=== PATIENT | male | born 1940 | race Caucasian/White ===

== ENCOUNTER 2024-03-11 06:58 | Day surgery (SDC) | payer MEDICARE, OTHER ==
[~2024-03-11] VITALS: Ht 182.9 cm; Wt 77.5 kg
[2024-03-11] MEDS ORDERED: JARDIANCE25 MG (07:21)
[2024-03-11] MEDS ORDERED: DORZOLAMIDE-TIM10 ML (07:21)
[2024-03-11] MEDS ORDERED: INSULANI (07:21)
[2024-03-11] MEDS ORDERED: PARO20 (07:22)
[2024-03-11] MEDS ORDERED: BUPR150ER (07:22)
[2024-03-11] MEDS ORDERED: INSULIN AS100 UNIT/6 (07:22)
[2024-03-11] MEDS ORDERED: METF500 (07:23)
[2024-03-11] MEDS ORDERED: EZET10 (07:23)
[2024-03-11] MEDS ORDERED: LATA.005SO (07:23)
[2024-03-11] MEDS ORDERED: Alphagan P5 ML (07:23)
[2024-03-11] MEDS ORDERED: CLOP75 (07:23)
[2024-03-11] MEDS ORDERED: Lactated Ringer's 1,000 ML IV ONE ×2 (07:37→07:57)
[2024-03-11] MEDS ORDERED: propofoL 50 ML IV ONE (07:37)
[2024-03-11] MEDS ORDERED: ASPIR 8181 MG (07:38)
[2024-03-11] MEDS ORDERED: ePHEDrine Sulfate 50 MG/ML 1ML Injection ONE (08:55)
[2024-03-11 09:25] VITALS: BP 127/66
== END 2024-03-11 09:30 | disposition home or self-care (01) ==
LOC: ORSCSDS 06:58
PROVIDERS: Internal Medicine Gastroenterology
PROC: 0DBM8ZX Excision of Descending Colon, Via Natural or Artificial Opening Endoscopic, Diagnostic (ICD-10-PCS; principal; 2024-03-11 08:00)
PROC: 0DBK8ZX Excision of Ascending Colon, Via Natural or Artificial Opening Endoscopic, Diagnostic (ICD-10-PCS; principal; 2024-03-11 08:00)
PROC: 0DBH8ZX Excision of Cecum, Via Natural or Artificial Opening Endoscopic, Diagnostic (ICD-10-PCS; principal; 2024-03-11 08:00)
DX: Z12.11 Encounter for screening for malignant neoplasm of colon (principal); Z86.010 Personal history of colon polyps; D12.4 Benign neoplasm of descending colon; Z87.891 Personal history of nicotine dependence; E11.9 Type 2 diabetes mellitus without complications; I65.29 Occlusion and stenosis of unspecified carotid artery; Z79.02 Long term (current) use of antithrombotics/antiplatelets; Z79.82 Long term (current) use of aspirin
CPT/HCPCS: 82947; 88305; J2704; J7120

== ENCOUNTER → 2024-06-09 | Outpatient (CLI) | payer MEDICARE, OTHER ==
[~2024-06-09] MED LIST: ASPIR 8181 MG; Alphagan P5 ML; BUPR150ER; CLOP75; DORZOLAMIDE-TIM10 ML; EZET10; INSULANI; INSULIN AS100 UNIT/6; JARDIANCE25 MG; LATA.005SO; METF500; PARO20
[2024-06-09 12:26] LABS: BASOPHILS ABSOLUTE AUTO 0.06 K/mm3 (0.00-0.23); BASOPHILS PERCENT AUTO 0 % (0-2); EOSINOPHILS ABSOLUTE AUTO 0.01 K/mm3 (0.00-0.68); EOSINOPHILS PERCENT AUTO 0 % (0-6); Hematocrit 47.1 % (37.0-53.0); Hemoglobin 14.8 g/dL (13.5-17.5); IMMATURE GRAN ABSOLUTE AUTO 0.07 K/mm3 (0.00-0.10); IMMATURE GRAN PERCENT AUTO 1 % (0-1); LYMPHOCYTES ABSOLUTE AUTO 1.47 K/mm3 (0.84-5.20); LYMPHOCYTES PERCENT AUTO 10 % (21-46); MONOCYTES ABSOLUTE AUTO 0.68 K/mm3 (0.16-1.47); MONOCYTES PERCENT AUTO 5 % (4-13); Mean Corpuscular HGB 29.3 pg (26.0-34.0); Mean Corpuscular HGB Conc 31.4 g/dL (31.5-36.5); Mean Corpuscular Volume 93 fL (80-100); NEUTROPHILS ABSOLUTE AUTO 11.84 K/mm3 (1.96-9.15); NEUTROPHILS PERCENT AUTO 84 % (41-73); Platelet Count 440 K/mm3 (150-400); RDW Coefficient Variation 13.1 % (11.7-14.2); RDW Standard Deviation 44.7 fL (35.1-46.3); Red Blood Cell Count 5.05 M/mm3 (4.30-5.90); White Blood Cell Count 14.13 K/mm3 (4.00-11.30)
[2024-06-09 12:41] LABS: Albumin, Blood 4.1 g/dL (3.4-5.0); Albumin/Globulin Ratio 0.9 (0.8-1.8); Bilirubin, Total 0.6 mg/dL (0.1-1.0); Bun/Creatinine Ratio 18.1 (12.0-20.0); Calcium, Blood 9.7 mg/dL (8.5-10.1); Creatinine, Blood 1.27 mg/dL (0.60-1.20); Globulin, Blood 4.6 g/dL (2.2-4.0); Potassium, Blood 4.6 mmol/L (3.5-5.5); Total Protein, Blood 8.7 g/dL (6.4-8.2)
== END ==
LOC: LAB 12:20 → LAB SHORT 12:20
PROVIDERS: Physician Assistant Medical
DX: R11.2 Nausea with vomiting, unspecified (principal)
CPT/HCPCS: 80053; 83690; 85025

== ENCOUNTER → 2024-06-09 | Outpatient (CLI) | payer MEDICARE, OTHER ==
[2024-06-09 15:24] LABS: Albumin, Blood 3.4 g/dL (3.4-5.0); Albumin/Globulin Ratio 0.9 (0.8-1.8); Bilirubin, Total 0.5 mg/dL (0.1-1.0); Bun/Creatinine Ratio 20.6 (12.0-20.0); Calcium, Blood 8.6 mg/dL (8.5-10.1); Creatinine, Blood 0.97 mg/dL (0.60-1.20); Globulin, Blood 3.9 g/dL (2.2-4.0); Potassium, Blood 4.1 mmol/L (3.5-5.5); Total Protein, Blood 7.3 g/dL (6.4-8.2)
== END ==
LOC: LAB 15:03 → LAB SHORT 15:03
PROVIDERS: Physician Assistant Medical
DX: R11.2 Nausea with vomiting, unspecified (principal)
CPT/HCPCS: 80053

== ENCOUNTER → 2024-06-30 | Outpatient (CLI) | payer MEDICARE, OTHER | LOC: LAB 15:58 → LAB SHORT 15:58 | DX: L97.512 Non-pressure chronic ulcer of other part of right foot with fat layer exposed (principal) | CPT/HCPCS: 87070; 87205 ==

== ENCOUNTER 2024-07-02 08:35 | Day surgery (SDC) | payer MEDICARE, OTHER ==
[2024-07-02] MEDS ORDERED: Lidocaine HCl 4% Cream 5 GM ONE (14:58)
== END 2024-07-02 23:00 | disposition home or self-care (01) ==
LOC: WOUND 08:35
DX: E11.621 Type 2 diabetes mellitus with foot ulcer (principal); L97.516 Non-pressure chronic ulcer of other part of right foot with bone involvement without evidence of necrosis; L97.512 Non-pressure chronic ulcer of other part of right foot with fat layer exposed; L97.511 Non-pressure chronic ulcer of other part of right foot limited to breakdown of skin; E11.40 Type 2 diabetes mellitus with diabetic neuropathy, unspecified; E11.51 Type 2 diabetes mellitus with diabetic peripheral angiopathy without gangrene; I87.2 Venous insufficiency (chronic) (peripheral); I73.9 Peripheral vascular disease, unspecified; Z79.4 Long term (current) use of insulin; Z79.84 Long term (current) use of oral hypoglycemic drugs
CPT/HCPCS: 73630; A6213; A9270; G0463

== ENCOUNTER 2024-07-09 01:30 | Day surgery (SDC) | payer MEDICARE, OTHER ==
[2024-07-09] MEDS ORDERED: Lidocaine HCl 4% Cream 5 GM ONE (08:44)
== END 2024-07-09 23:05 | disposition home or self-care (01) ==
LOC: WOUND 01:30
DX: E11.621 Type 2 diabetes mellitus with foot ulcer (principal); L97.512 Non-pressure chronic ulcer of other part of right foot with fat layer exposed; L97.515 Non-pressure chronic ulcer of other part of right foot with muscle involvement without evidence of necrosis; E11.40 Type 2 diabetes mellitus with diabetic neuropathy, unspecified; E11.51 Type 2 diabetes mellitus with diabetic peripheral angiopathy without gangrene
CPT/HCPCS: A9270; G0463

== ENCOUNTER 2024-07-16 05:11 | Day surgery (SDC) | payer MEDICARE, OTHER | END 2024-07-20 23:00 | disposition home or self-care (01) | LOC: WOUND 05:11 | DX: E11.621 Type 2 diabetes mellitus with foot ulcer (principal); L97.515 Non-pressure chronic ulcer of other part of right foot with muscle involvement without evidence of necrosis; L97.512 Non-pressure chronic ulcer of other part of right foot with fat layer exposed; E11.51 Type 2 diabetes mellitus with diabetic peripheral angiopathy without gangrene | CPT/HCPCS: A6213; G0463 ==

== ENCOUNTER 2024-07-23 03:06 | Day surgery (SDC) | payer MEDICARE, OTHER ==
[2024-07-23] MEDS ORDERED: Lidocaine HCl 4% Cream 5 GM ONE (09:35)
== END 2024-07-23 23:00 | disposition home or self-care (01) ==
LOC: WOUND 03:06
DX: E11.621 Type 2 diabetes mellitus with foot ulcer (principal); L97.512 Non-pressure chronic ulcer of other part of right foot with fat layer exposed; L97.413 Non-pressure chronic ulcer of right heel and midfoot with necrosis of muscle; E11.51 Type 2 diabetes mellitus with diabetic peripheral angiopathy without gangrene
CPT/HCPCS: A6213; A9270; G0463

== ENCOUNTER 2024-07-30 06:05 | Day surgery (SDC) | payer MEDICARE, OTHER ==
[2024-07-30] MEDS ORDERED: Lidocaine HCl 4% Cream 5 GM ONE (10:44)
== END 2024-07-30 23:00 | disposition home or self-care (01) ==
LOC: WOUND 06:05
DX: E11.621 Type 2 diabetes mellitus with foot ulcer (principal); L97.515 Non-pressure chronic ulcer of other part of right foot with muscle involvement without evidence of necrosis; L97.512 Non-pressure chronic ulcer of other part of right foot with fat layer exposed; L97.511 Non-pressure chronic ulcer of other part of right foot limited to breakdown of skin; E11.51 Type 2 diabetes mellitus with diabetic peripheral angiopathy without gangrene
CPT/HCPCS: A6213; A9270; G0463

== ENCOUNTER 2024-08-20 01:43 | Day surgery (SDC) | payer MEDICARE, OTHER ==
[2024-08-20] MEDS ORDERED: Lidocaine HCl 4% Cream 5 GM ONE (11:09)
== END 2024-08-22 23:00 | disposition home or self-care (01) ==
LOC: WOUND 01:43
DX: E11.621 Type 2 diabetes mellitus with foot ulcer (principal); L97.515 Non-pressure chronic ulcer of other part of right foot with muscle involvement without evidence of necrosis; L97.512 Non-pressure chronic ulcer of other part of right foot with fat layer exposed; E11.51 Type 2 diabetes mellitus with diabetic peripheral angiopathy without gangrene; E11.40 Type 2 diabetes mellitus with diabetic neuropathy, unspecified
CPT/HCPCS: A6213; A9270; G0463

== ENCOUNTER 2024-08-27 00:51 | Day surgery (SDC) | payer MEDICARE, OTHER ==
[~2024-08-27 00:51] MED LIST changes: -ASPIR 8181 MG; +ASPIR 8181 MG PO; -Alphagan P5 ML; +Alphagan P5 ML RIGHTEYE; -BUPR150ER; +BUPR150ER PO; -CLOP75; +CLOP75 PO; -EZET10; +EZET10 PO; -INSULANI; +INSULANI SC; -JARDIANCE25 MG; +JARDIANCE25 MG PO; -LATA.005SO; +LATA.005SO BOTHEYES; -METF500; +METF500 PO; -PARO20; +PARO20 PO
[2024-08-27] MEDS ORDERED: Lidocaine HCl 4% Cream 5 GM ONE (10:09)
[2024-08-28] MEDS ORDERED: Vitamin D1000 UNI1 PO (09:17)
[2024-08-28] MEDS ORDERED: GLIM4 PO (09:17)
[2024-08-28] MEDS ORDERED: DORZOPSO RIGHTEYE (09:17)
[2024-08-28] MEDS ORDERED: TOCO1000 PO (09:18)
== END 2024-08-27 23:00 | disposition home or self-care (01) ==
LOC: WOUND 00:51
DX: E11.621 Type 2 diabetes mellitus with foot ulcer (principal); L97.515 Non-pressure chronic ulcer of other part of right foot with muscle involvement without evidence of necrosis; L97.512 Non-pressure chronic ulcer of other part of right foot with fat layer exposed; E11.51 Type 2 diabetes mellitus with diabetic peripheral angiopathy without gangrene; E11.40 Type 2 diabetes mellitus with diabetic neuropathy, unspecified; I73.9 Peripheral vascular disease, unspecified; L97.519 Non-pressure chronic ulcer of other part of right foot with unspecified severity
CPT/HCPCS: A6213; A9270; G0463

== ENCOUNTER 2024-08-28 08:49 | Day surgery (SDC) | payer MEDICARE, OTHER ==
[~2024-08-28] VITALS: Ht 182.9 cm; Wt 75.3 kg
[2024-08-28] VITALS (10 sets, daily range): BP systolic 113–158; BP diastolic 55–109
[2024-08-28] MEDS ORDERED: DORZOPSO RIGHTEYE (09:17)
[2024-08-28] MEDS ORDERED: GLIM4 PO (09:17)
[2024-08-28] MEDS ORDERED: Vitamin D1000 UNI1 PO (09:17)
[2024-08-28] MEDS ORDERED: TOCO1000 PO (09:18)
[2024-08-28] MEDS ORDERED: Midazolam HCl 1MG / ML 2ML Vial ONE (11:29)
[2024-08-28] MEDS ORDERED: Heparin Sodium 1000 Units/ML 10ML MDV ONE (11:30)
[2024-08-28] MEDS ORDERED: FentaNYL Citrate 50 MCG/ML 2 ML Injection ONE (11:30)
[2024-08-28] MEDS ORDERED: NS 250 ML IV ONE (11:30)
[2024-08-28] MEDS ORDERED: NS 2,000 ML IV ONE (11:30)
[2024-08-28] MEDS ORDERED: Phenylephrine HCl 100 MCG/ML-NS 10MLSYR (1MG/10ML) ONE (12:03)
[2024-08-28] MEDS ORDERED: NS 100 ML IV ONE (12:27)
[2024-08-28] MEDS ORDERED: Nitroglycerin 2 MG/20 ML BTL ONE (12:52)
[2024-08-28] MEDS ORDERED: Verapamil HCL 2.5 MG/ML 2ML Injection ONE (12:52)
--- NOTE | 2024-08-28 14:00 | NUR ---
SITE INTACT TO GROIN, NOTED GOOD PULSES DISTAL/PROXIMAL, NO HEMATOMA, VSS, BROUGHT WATER, DISCUSS LAYING FLAT, PENDING D/C, PATIENT DENIES NEEDS.
--- NOTE | 2024-08-28 14:05 | NUR ---
ASSUMED CARE OF PT POST PROCEDURE. PT AWAKE AND CONVERSING APPROPRIATELY; DENIES PAIN POST PROCEDURE. MONITOR SR 60'S, B/P 158/91, SPO2 96% RA. L GROIN NO SWELLING/HEMATOMA, TEGADERM DRSG INTACT; ANGIO SEAL DEPLOYED, LLE DP 2+, PT 1+. R DP ATTEMPT- NO SWELLING/HEMATOMA, CLOTH DOT DRSG INTACT.
--- NOTE | 2024-08-28 15:05 | NUR ---
PT'S HOB ELEVATED, SITE UNCHANGED.
--- NOTE | 2024-08-28 16:05 | NUR ---
PT AMB TO BATHROOM, GAIT STEADY; SITE UNCHANGED WITH ACTIVIY.
--- NOTE | 2024-08-28 16:20 | NUR ---
PT DRESSED SELF WITHOUT PROBLEM, SITES UNCHANGED; IV REMOVED-CANNULA INTACT.
--- NOTE | 2024-08-28 16:29 | NUR ---
PT AND RECEIVED DISCHARGE INSTRUCTIONS, MED LIST AND AFTER CARE INSTRUCTIONS; VERBALIZED GOOD UNDERSTANDING. PT LEFT FACILITY VIA W/C, CONDITION STABLE.
== END 2024-08-28 16:29 | disposition home or self-care (01) ==
LOC: MHTC 08:49
DX: I70.235 Atherosclerosis of native arteries of right leg with ulceration of other part of foot (principal); L97.519 Non-pressure chronic ulcer of other part of right foot with unspecified severity
CPT/HCPCS: 37224; 37228; 75625; 75716; 75774; 76937; 82947; 93005; 93010; 99152; 99153; C1725; C1769; C1887; C1894; C2623; J1644; J2250; J2371; J3010; J7030; J7050; Q9967

== ENCOUNTER 2024-09-02 03:45 | Day surgery (SDC) | payer MEDICARE, OTHER ==
[~2024-09-02 03:45] MED LIST changes: +DORZOPSO RIGHTEYE; +GLIM4 PO; +TOCO1000 PO; +Vitamin D1000 UNI1 PO
[2024-09-02] MEDS ORDERED: Lidocaine HCl 4% Cream 5 GM ONE (10:06)
== END 2024-09-02 23:16 | disposition home or self-care (01) ==
LOC: WOUND 03:45
DX: E11.621 Type 2 diabetes mellitus with foot ulcer (principal); L97.513 Non-pressure chronic ulcer of other part of right foot with necrosis of muscle; L97.512 Non-pressure chronic ulcer of other part of right foot with fat layer exposed; E11.51 Type 2 diabetes mellitus with diabetic peripheral angiopathy without gangrene
CPT/HCPCS: A6213; A9270; G0463

== ENCOUNTER 2024-09-10 01:26 | Day surgery (SDC) | payer MEDICARE, OTHER ==
[2024-09-10] MEDS ORDERED: ATOR80 PO (12:57)
== END 2024-09-10 23:00 | disposition home or self-care (01) ==
LOC: WOUND 01:26
DX: E11.621 Type 2 diabetes mellitus with foot ulcer (principal); L97.512 Non-pressure chronic ulcer of other part of right foot with fat layer exposed; E11.51 Type 2 diabetes mellitus with diabetic peripheral angiopathy without gangrene; E11.40 Type 2 diabetes mellitus with diabetic neuropathy, unspecified; I70.221 Atherosclerosis of native arteries of extremities with rest pain, right leg; L97.519 Non-pressure chronic ulcer of other part of right foot with unspecified severity
CPT/HCPCS: 36415; 80048; 85007; 85027; 85610; A6213; G0463

== ENCOUNTER 2024-09-11 07:29 | Day surgery (SDC) | payer MEDICARE, OTHER ==
[2024-09-11] VITALS (9 sets, daily range): BP systolic 95–152; BP diastolic 62–95
[~2024-09-11] VITALS: Ht 182.9 cm; Wt 75.0 kg
[~2024-09-11 07:29] MED LIST changes: +ATOR80 PO
[2024-09-11] MEDS ORDERED: Midazolam HCl 1MG / ML 2ML Vial ONE (08:20)
[2024-09-11] MEDS ORDERED: FentaNYL Citrate 50 MCG/ML 2 ML Injection ONE (08:20)
--- NOTE | 2024-09-11 09:25 | NUR ---
PATIENT ARRIVED TO RECOVERY ROOM WITH HOB FLAT. RIGHT GROIN SITE C/D/I SOFT/NONTENDER, NO EVIDENCE OF BLEEDING. VSS ON RA. PULSES PRESENT IN DP AND PT EXCEPT R DP. PHYSICAN AWARE. PATIENT CONVERSING APPROPRIATELY.
--- NOTE | 2024-09-11 10:00 | NUR ---
PATIENT RESTING COMFORTABLY IN BED. RIGHT GROIN SITE C/D/I SOFT/NONTENDER, NO EVIDENCE OF BLEEDING. VSS ON RA. PATIENT DENYING ANY PAIN. NO CHANGES IN PULSES
--- NOTE | 2024-09-11 10:30 | NUR ---
HOB ELEVATED 30 DEGREES. RIGHT GROIN SITE C/D/I SOFT/NONTENDER, NO EVIDENCE OF BLEEDING. VSS ON RA. PATIENT TOLERATING PO INTAKE WELL. NO CHANGES TO PULSES
--- NOTE | 2024-09-11 10:45 | NUR ---
HOB ELEVATED 45 DEGREES. RIGHT GROIN SITE C/D/I SOFT/NONTENDER, NO EVIDENCE OF BLEEDING. VSS ON RA. PATIENT TOLERATING PO INTAKE WELL. PATIENT DENYING ANY PAIN. PULSES UN CHANGED.
--- NOTE | 2024-09-11 12:00 | NUR ---
PATIENT AMBULATING TO RESTROOM WITHOUT DIFFIUCLTY. RIGHT GROIN SITE C/D/I SOFT/NONTENDER, NO EVIDENCE OF BLEEDING. VSS ON RA.
--- NOTE | 2024-09-11 12:05 | NUR ---
groin site soft and non-tender per pt. no bleeding/hematoma noted. pt ambulated to restroom w/o assistance.
--- NOTE | 2024-09-11 12:30 | NUR ---
PATIENT DISCHARGED HOME AT THIS TIME. SPOUSE ABLE TO PROVIDE TRANSPORTATION HOME. VSS ON RA. RIGHT GROIN SITE C/D/I SOFT/NONTENDER, NO EVIDENCE OF BLEEDING. ALL PATIENT BELONGINGS LEFT WITH PATIENT. DISCHARGE PAPERWORK REVIEWED WITH PATIENT, ALL QUESTIONS WERE ANSWERED. PIV REMOVED WITHOUT DIFFICULTY, CATHETER INTACT. PATIENT WHEELED TO HOPSITAL ENTRANCE AND SPOUSE ABLE TO PROVIDE TRANSPORTATION HOME.
== END 2024-09-11 12:54 | disposition home or self-care (01) ==
LOC: MHTC 07:29
DX: E11.51 Type 2 diabetes mellitus with diabetic peripheral angiopathy without gangrene (principal); I70.221 Atherosclerosis of native arteries of extremities with rest pain, right leg; E11.621 Type 2 diabetes mellitus with foot ulcer; L97.519 Non-pressure chronic ulcer of other part of right foot with unspecified severity; E11.42 Type 2 diabetes mellitus with diabetic polyneuropathy; E78.5 Hyperlipidemia, unspecified; I10 Essential (primary) hypertension; Z87.891 Personal history of nicotine dependence
CPT/HCPCS: 37224; 37228; 37232; 75716; 75774; 76937; 82947; 99152; 99153; C1725; C1760; C1769; C1887; C1894; C2623; J2250; J3010; Q9967

== ENCOUNTER 2024-09-17 04:28 | Day surgery (SDC) | payer MEDICARE, OTHER ==
[2024-09-17] MEDS ORDERED: Lidocaine HCl 4% Cream 5 GM ONE (11:07)
== END 2024-09-17 23:00 | disposition home or self-care (01) ==
LOC: WOUND 04:28
DX: E11.621 Type 2 diabetes mellitus with foot ulcer (principal); L97.513 Non-pressure chronic ulcer of other part of right foot with necrosis of muscle; L97.512 Non-pressure chronic ulcer of other part of right foot with fat layer exposed; E11.51 Type 2 diabetes mellitus with diabetic peripheral angiopathy without gangrene; E11.40 Type 2 diabetes mellitus with diabetic neuropathy, unspecified
CPT/HCPCS: A6213; A9270

== ENCOUNTER 2024-09-24 01:33 | Day surgery (SDC) | payer MEDICARE, OTHER ==
[2024-09-24] MEDS ORDERED: Lidocaine HCl 4% Cream 5 GM ONE (09:32)
== END 2024-09-24 23:00 | disposition home or self-care (01) ==
LOC: WOUND 01:33
DX: E11.621 Type 2 diabetes mellitus with foot ulcer (principal); L97.512 Non-pressure chronic ulcer of other part of right foot with fat layer exposed; E11.51 Type 2 diabetes mellitus with diabetic peripheral angiopathy without gangrene
CPT/HCPCS: A9270

== ENCOUNTER → 2024-10-01 | Day surgery (SDC) | payer MEDICARE, OTHER ==
[~2024-10-01] MED LIST changes: +Lidocaine HCl 4% Cream 5 GM ONE; +Silver Nitr/Potassium Nitrate 1 EA APPL ONE
== END ==
LOC: WOUND 02:56
DX: E11.621 Type 2 diabetes mellitus with foot ulcer (principal); L97.515 Non-pressure chronic ulcer of other part of right foot with muscle involvement without evidence of necrosis; L97.512 Non-pressure chronic ulcer of other part of right foot with fat layer exposed; E11.40 Type 2 diabetes mellitus with diabetic neuropathy, unspecified; E11.51 Type 2 diabetes mellitus with diabetic peripheral angiopathy without gangrene
CPT/HCPCS: A9270

== ENCOUNTER 2024-10-08 02:26 | Day surgery (SDC) | payer MEDICARE, OTHER ==
[~2024-10-08 02:26] MED LIST changes: -Lidocaine HCl 4% Cream 5 GM ONE; -Silver Nitr/Potassium Nitrate 1 EA APPL ONE
[2024-10-08] MEDS ORDERED: Lidocaine HCl 4% Cream 5 GM ONE (10:42)
== END 2024-10-08 23:00 | disposition home or self-care (01) ==
LOC: WOUND 02:26
DX: E11.621 Type 2 diabetes mellitus with foot ulcer (principal); L97.512 Non-pressure chronic ulcer of other part of right foot with fat layer exposed; L97.513 Non-pressure chronic ulcer of other part of right foot with necrosis of muscle; E11.51 Type 2 diabetes mellitus with diabetic peripheral angiopathy without gangrene; M79.671 Pain in right foot; M79.89 Other specified soft tissue disorders
CPT/HCPCS: 73630; A9270

== ENCOUNTER → 2024-10-15 | Day surgery (SDC) | payer MEDICARE, OTHER ==
[~2024-10-15] MED LIST changes: +Lidocaine HCl 4% Cream 5 GM ONE
== END ==
LOC: WOUND 01:41
DX: E11.621 Type 2 diabetes mellitus with foot ulcer (principal); L97.515 Non-pressure chronic ulcer of other part of right foot with muscle involvement without evidence of necrosis; L97.512 Non-pressure chronic ulcer of other part of right foot with fat layer exposed; E11.51 Type 2 diabetes mellitus with diabetic peripheral angiopathy without gangrene; E11.40 Type 2 diabetes mellitus with diabetic neuropathy, unspecified
CPT/HCPCS: A9270

== ENCOUNTER 2024-10-22 05:22 | Day surgery (SDC) | payer MEDICARE, OTHER ==
[~2024-10-22 05:22] MED LIST changes: -Lidocaine HCl 4% Cream 5 GM ONE
[2024-10-22] MEDS ORDERED: Lidocaine HCl 4% Cream 5 GM ONE (10:44)
== END 2024-10-22 23:00 | disposition home or self-care (01) ==
LOC: WOUND 05:22
DX: E11.621 Type 2 diabetes mellitus with foot ulcer (principal); L97.512 Non-pressure chronic ulcer of other part of right foot with fat layer exposed; L97.515 Non-pressure chronic ulcer of other part of right foot with muscle involvement without evidence of necrosis; E11.51 Type 2 diabetes mellitus with diabetic peripheral angiopathy without gangrene
CPT/HCPCS: A9270; G0463

== ENCOUNTER 2024-10-29 02:35 | Day surgery (SDC) | payer MEDICARE, OTHER ==
[2024-10-29] MEDS ORDERED: Lidocaine HCl 4% Cream 5 GM ONE (10:18)
== END 2024-10-29 23:00 | disposition home or self-care (01) ==
LOC: WOUND 02:35
DX: E11.621 Type 2 diabetes mellitus with foot ulcer (principal); L97.512 Non-pressure chronic ulcer of other part of right foot with fat layer exposed; L97.515 Non-pressure chronic ulcer of other part of right foot with muscle involvement without evidence of necrosis; E11.51 Type 2 diabetes mellitus with diabetic peripheral angiopathy without gangrene; E11.40 Type 2 diabetes mellitus with diabetic neuropathy, unspecified
CPT/HCPCS: A9270

== ENCOUNTER 2024-11-05 03:12 | Day surgery (SDC) | payer MEDICARE, OTHER ==
[2024-11-05] MEDS ORDERED: Lidocaine HCl 4% Cream 5 GM ONE (10:30)
== END 2024-11-05 23:00 | disposition home or self-care (01) ==
LOC: WOUND 03:12
DX: E11.621 Type 2 diabetes mellitus with foot ulcer (principal); L97.512 Non-pressure chronic ulcer of other part of right foot with fat layer exposed; E11.51 Type 2 diabetes mellitus with diabetic peripheral angiopathy without gangrene
CPT/HCPCS: A9270

== ENCOUNTER 2024-11-12 05:48 | Day surgery (SDC) | payer MEDICARE, OTHER ==
[2024-11-12] MEDS ORDERED: Lidocaine HCl 4% Cream 5 GM ONE (10:13)
== END 2024-11-12 23:00 ==
LOC: WOUND
DX: E11.621 Type 2 diabetes mellitus with foot ulcer (principal); L97.513 Non-pressure chronic ulcer of other part of right foot with necrosis of muscle; L97.512 Non-pressure chronic ulcer of other part of right foot with fat layer exposed; E11.51 Type 2 diabetes mellitus with diabetic peripheral angiopathy without gangrene
CPT/HCPCS: A9270

== ENCOUNTER 2024-12-24 02:59 | Day surgery (SDC) | payer MEDICARE, OTHER | END 2024-12-24 23:00 | disposition home or self-care (01) | LOC: WOUND 02:59 | DX: E11.621 Type 2 diabetes mellitus with foot ulcer (principal); L97.512 Non-pressure chronic ulcer of other part of right foot with fat layer exposed; L97.513 Non-pressure chronic ulcer of other part of right foot with necrosis of muscle; L97.515 Non-pressure chronic ulcer of other part of right foot with muscle involvement without evidence of necrosis; E11.51 Type 2 diabetes mellitus with diabetic peripheral angiopathy without gangrene | CPT/HCPCS: A6213; G0463 ==

== ENCOUNTER 2024-12-31 01:54 | Day surgery (SDC) | payer MEDICARE, OTHER | END 2024-12-31 23:00 | disposition home or self-care (01) | LOC: WOUND 01:54 | DX: E11.621 Type 2 diabetes mellitus with foot ulcer (principal); L97.512 Non-pressure chronic ulcer of other part of right foot with fat layer exposed; E11.51 Type 2 diabetes mellitus with diabetic peripheral angiopathy without gangrene | CPT/HCPCS: A6213; G0463 ==

== ENCOUNTER 2025-01-07 03:32 | Day surgery (SDC) | payer MEDICARE, OTHER ==
[2025-01-07] MEDS ORDERED: Lidocaine HCl 4% Cream 5 GM ONE (10:31)
== END 2025-01-07 23:00 | disposition home or self-care (01) ==
LOC: WOUND 03:32
DX: E11.621 Type 2 diabetes mellitus with foot ulcer (principal); L97.512 Non-pressure chronic ulcer of other part of right foot with fat layer exposed; E11.51 Type 2 diabetes mellitus with diabetic peripheral angiopathy without gangrene
CPT/HCPCS: A6213; A9270

== ENCOUNTER 2025-01-14 03:15 | Day surgery (SDC) | payer MEDICARE, OTHER ==
[2025-01-14] MEDS ORDERED: Lidocaine HCl 4% Cream 5 GM ONE (09:34)
== END 2025-01-14 23:00 | disposition home or self-care (01) ==
LOC: WOUND 03:15
DX: E11.621 Type 2 diabetes mellitus with foot ulcer (principal); L97.512 Non-pressure chronic ulcer of other part of right foot with fat layer exposed; E11.51 Type 2 diabetes mellitus with diabetic peripheral angiopathy without gangrene
CPT/HCPCS: A6213; A9270; G0463

== ENCOUNTER 2025-01-21 03:33 | Day surgery (SDC) | payer MEDICARE, OTHER | END 2025-01-21 23:00 | disposition home or self-care (01) | LOC: WOUND 03:33 | DX: E11.621 Type 2 diabetes mellitus with foot ulcer (principal); L97.512 Non-pressure chronic ulcer of other part of right foot with fat layer exposed; E11.51 Type 2 diabetes mellitus with diabetic peripheral angiopathy without gangrene | CPT/HCPCS: A6213; G0463 ==

== ENCOUNTER 2025-02-11 06:47 | Day surgery (SDC) | payer MEDICARE, OTHER ==
[2025-02-11] MEDS ORDERED: Lidocaine HCl 4% Cream 5 GM ONE (10:53)
== END 2025-02-11 23:00 | disposition home or self-care (01) ==
LOC: WOUND 06:47
DX: E11.621 Type 2 diabetes mellitus with foot ulcer (principal); L97.512 Non-pressure chronic ulcer of other part of right foot with fat layer exposed; E11.51 Type 2 diabetes mellitus with diabetic peripheral angiopathy without gangrene
CPT/HCPCS: A6213; A9270; G0463

== ENCOUNTER 2025-02-18 04:20 | Day surgery (SDC) | payer MEDICARE, OTHER | END 2025-02-18 23:00 | disposition home or self-care (01) | LOC: WOUND 04:20 | DX: E11.621 Type 2 diabetes mellitus with foot ulcer (principal); L97.512 Non-pressure chronic ulcer of other part of right foot with fat layer exposed; E11.51 Type 2 diabetes mellitus with diabetic peripheral angiopathy without gangrene; E11.40 Type 2 diabetes mellitus with diabetic neuropathy, unspecified | CPT/HCPCS: A6213; G0463 ==

== ENCOUNTER 2025-02-25 02:48 | Day surgery (SDC) | payer MEDICARE, OTHER | END 2025-02-25 23:00 | disposition home or self-care (01) | LOC: WOUND 02:48 | DX: E11.621 Type 2 diabetes mellitus with foot ulcer (principal); L97.512 Non-pressure chronic ulcer of other part of right foot with fat layer exposed; E11.51 Type 2 diabetes mellitus with diabetic peripheral angiopathy without gangrene | CPT/HCPCS: A6196; A6213; G0463 ==

== ENCOUNTER 2025-03-04 03:13 | Day surgery (SDC) | payer MEDICARE, OTHER ==
[2025-03-04] MEDS ORDERED: Lidocaine HCl 4% Cream 5 GM ONE (10:36)
== END 2025-03-04 23:00 | disposition home or self-care (01) ==
LOC: WOUND 03:13
DX: E11.621 Type 2 diabetes mellitus with foot ulcer (principal); L97.512 Non-pressure chronic ulcer of other part of right foot with fat layer exposed; E11.51 Type 2 diabetes mellitus with diabetic peripheral angiopathy without gangrene; E11.40 Type 2 diabetes mellitus with diabetic neuropathy, unspecified
CPT/HCPCS: A6196; A6213; A9270

== ENCOUNTER 2025-03-11 02:23 | Day surgery (SDC) | payer MEDICARE, OTHER ==
[2025-03-11] MEDS ORDERED: Lidocaine HCl 4% Cream 5 GM ONE (10:53)
== END 2025-03-11 23:00 | disposition home or self-care (01) ==
LOC: WOUND 02:23
DX: E11.621 Type 2 diabetes mellitus with foot ulcer (principal); L97.512 Non-pressure chronic ulcer of other part of right foot with fat layer exposed; E11.51 Type 2 diabetes mellitus with diabetic peripheral angiopathy without gangrene; E11.40 Type 2 diabetes mellitus with diabetic neuropathy, unspecified
CPT/HCPCS: A6196; A6213; A9270; G0463

== ENCOUNTER 2025-03-25 01:41 | Day surgery (SDC) | payer MEDICARE, OTHER ==
[2025-03-25] MEDS ORDERED: Lidocaine HCl 4% Cream 5 GM ONE (10:36)
== END 2025-03-25 23:00 | disposition home or self-care (01) ==
LOC: WOUND 01:41
DX: E11.621 Type 2 diabetes mellitus with foot ulcer (principal); L97.512 Non-pressure chronic ulcer of other part of right foot with fat layer exposed; E11.51 Type 2 diabetes mellitus with diabetic peripheral angiopathy without gangrene; E11.40 Type 2 diabetes mellitus with diabetic neuropathy, unspecified
CPT/HCPCS: A6213; A9270; G0463

== ENCOUNTER 2025-04-03 06:37 | Day surgery (SDC) | payer MEDICARE, OTHER ==
[2025-04-03] VITALS (8 sets, daily range): BP systolic 106–132; BP diastolic 57–97
[~2025-04-03] VITALS: Ht 182.9 cm; Wt 77.6 kg
[2025-04-03] MEDS ORDERED: NS 500 ML IV ONE (07:32)
[2025-04-03] MEDS ORDERED: Heparin Sodium 1000 Units/ML 10ML MDV ONE (07:33)
[2025-04-03] MEDS ORDERED: NS 1,000 ML IV ONE ×2 (07:33→07:46)
[2025-04-03] MEDS ORDERED: Midazolam HCl 1MG / ML 2ML Vial ONE (07:46)
[2025-04-03] MEDS ORDERED: FentaNYL Citrate 50 MCG/ML 2 ML Injection ONE (07:47)
[2025-04-03] MEDS ORDERED: Nitroglycerin 2 MG/20 ML BTL ONE (09:17)
--- NOTE | 2025-04-03 09:49 | NUR ---
PT RETURNS TO RECOVERY ROOM AT THIS TIME PT ALERT AND ORIENTED, REMAINS SUPINE AT THIS TIME. ANGIOSEAL IN PLACE TO LEFT GROIN. SITE SOFT, NO HEMATOMA, NO OOZING. DISTAL PULSES PRESENT. PT. VSS AT THIS TIME. ICE WATER PROVIDED PER PT. REQUEST. NADN. CALL LIGHT IN REACH.
--- NOTE | 2025-04-03 10:22 | NUR ---
PT resting comfortably in bed, VSS, Left groin site remains wnl, no oozing, swelling or hematoma.
--- NOTE | 2025-04-03 10:39 | NUR ---
Pt HOB elevated to 30 degrees, Breakfast sandwich and coffee provided per pt request. Left groin site remains wnl. no oozing or swelling noted.
--- NOTE | 2025-04-03 11:34 | NUR ---
PT able to dangle at bedside then stand, L groin site wnl, no changes from previous assessment. Pt ambulated to bathroom to void, then back to bed. VSS remain stable. Additional refreshments provided. Pt updated on timing for discharge and procedure.
--- NOTE | 2025-04-03 12:15 | NUR ---
pt able to get self dressed. left groin remains wnl with activity. site assessed prior to departure. Pt discharge instructions reviewed in detail. Pt vss upon discharge, IV removed catheter intact. Pt taken to exit via wheelchair with all belongings, pt picked pt up.
== END 2025-04-03 14:02 | disposition home or self-care (01) ==
LOC: MHTC 06:37
DX: E11.51 Type 2 diabetes mellitus with diabetic peripheral angiopathy without gangrene (principal); I70.235 Atherosclerosis of native arteries of right leg with ulceration of other part of foot; L97.519 Non-pressure chronic ulcer of other part of right foot with unspecified severity
CPT/HCPCS: 76937; 99152; 99153; C1725; C1760; C1769; C1887; C1894; J1644; J2250; J3010; J7030; J7050; Q9967

== ENCOUNTER 2025-04-08 00:25 | Day surgery (SDC) | payer MEDICARE, OTHER | END 2025-04-08 23:00 | disposition home or self-care (01) | LOC: WOUND 00:25 | DX: E11.621 Type 2 diabetes mellitus with foot ulcer (principal); L97.512 Non-pressure chronic ulcer of other part of right foot with fat layer exposed; E11.40 Type 2 diabetes mellitus with diabetic neuropathy, unspecified; E11.51 Type 2 diabetes mellitus with diabetic peripheral angiopathy without gangrene | CPT/HCPCS: 87081; A6213; G0463 ==

== ENCOUNTER 2025-04-17 00:21 | Day surgery (SDC) | payer MEDICARE, OTHER ==
[2025-04-17] MEDS ORDERED: Lidocaine HCl 4% Cream 5 GM ONE (09:06)
== END 2025-04-17 23:00 | disposition home or self-care (01) ==
LOC: WOUND 00:21
DX: E11.621 Type 2 diabetes mellitus with foot ulcer (principal); L97.512 Non-pressure chronic ulcer of other part of right foot with fat layer exposed; E11.51 Type 2 diabetes mellitus with diabetic peripheral angiopathy without gangrene
CPT/HCPCS: A6196; A6213; A9270; G0463

== ENCOUNTER 2025-04-22 00:41 | Day surgery (SDC) | payer MEDICARE, OTHER | END 2025-04-22 23:00 | disposition home or self-care (01) | LOC: WOUND 00:41 | DX: E11.621 Type 2 diabetes mellitus with foot ulcer (principal); L97.512 Non-pressure chronic ulcer of other part of right foot with fat layer exposed; E11.51 Type 2 diabetes mellitus with diabetic peripheral angiopathy without gangrene; E11.40 Type 2 diabetes mellitus with diabetic neuropathy, unspecified | CPT/HCPCS: A6196; A6213; G0463 ==

== ENCOUNTER 2025-04-29 01:53 | Day surgery (SDC) | payer MEDICARE, OTHER ==
[2025-04-29] MEDS ORDERED: Lidocaine HCl 4% Cream 5 GM ONE (10:48)
== END 2025-04-29 23:00 | disposition home or self-care (01) ==
LOC: WOUND 01:53
DX: E11.621 Type 2 diabetes mellitus with foot ulcer (principal); L97.515 Non-pressure chronic ulcer of other part of right foot with muscle involvement without evidence of necrosis; E11.51 Type 2 diabetes mellitus with diabetic peripheral angiopathy without gangrene
CPT/HCPCS: A6213; A9270; G0463

== ENCOUNTER 2025-05-06 00:15 | Day surgery (SDC) | payer MEDICARE, OTHER ==
[2025-05-06] MEDS ORDERED: Lidocaine HCl 4% Cream 5 GM ONE (10:42)
== END 2025-05-06 23:00 | disposition home or self-care (01) ==
LOC: WOUND 00:15
DX: E11.621 Type 2 diabetes mellitus with foot ulcer (principal); L97.515 Non-pressure chronic ulcer of other part of right foot with muscle involvement without evidence of necrosis; E11.51 Type 2 diabetes mellitus with diabetic peripheral angiopathy without gangrene; E11.40 Type 2 diabetes mellitus with diabetic neuropathy, unspecified
CPT/HCPCS: A6213; A9270; G0463

== ENCOUNTER 2025-05-27 00:19 | Day surgery (SDC) | payer MEDICARE, OTHER ==
[2025-05-27] MEDS ORDERED: Lidocaine HCl 4% Cream 5 GM ONE (10:28)
== END 2025-05-27 23:38 | disposition home or self-care (01) ==
LOC: WOUND 00:19
DX: E11.621 Type 2 diabetes mellitus with foot ulcer (principal); L97.512 Non-pressure chronic ulcer of other part of right foot with fat layer exposed; E11.51 Type 2 diabetes mellitus with diabetic peripheral angiopathy without gangrene
CPT/HCPCS: A6196; A6213; A9270

== ENCOUNTER 2025-06-03 00:14 | Day surgery (SDC) | payer MEDICARE, OTHER | END 2025-06-03 23:00 | disposition home or self-care (01) | LOC: WOUND 00:14 | DX: E11.621 Type 2 diabetes mellitus with foot ulcer (principal); L97.512 Non-pressure chronic ulcer of other part of right foot with fat layer exposed; E11.40 Type 2 diabetes mellitus with diabetic neuropathy, unspecified; E11.51 Type 2 diabetes mellitus with diabetic peripheral angiopathy without gangrene | CPT/HCPCS: A6213 ==

== ENCOUNTER 2025-06-24 07:46 | Day surgery (SDC) | payer MEDICARE, OTHER ==
[2025-06-24] MEDS ORDERED: Lidocaine HCl 4% Cream 5 GM ONE (10:04)
== END 2025-06-24 23:00 | disposition home or self-care (01) ==
LOC: WOUND 07:46
DX: E11.621 Type 2 diabetes mellitus with foot ulcer (principal); L97.512 Non-pressure chronic ulcer of other part of right foot with fat layer exposed; L97.515 Non-pressure chronic ulcer of other part of right foot with muscle involvement without evidence of necrosis; E11.51 Type 2 diabetes mellitus with diabetic peripheral angiopathy without gangrene; E11.40 Type 2 diabetes mellitus with diabetic neuropathy, unspecified; Z79.4 Long term (current) use of insulin; Z79.84 Long term (current) use of oral hypoglycemic drugs; Z79.899 Other long term (current) drug therapy
CPT/HCPCS: A6213; A9270; G0463